=== PATIENT | female | born 1965 | race Caucasian/White ===

== ENCOUNTER 2019-01-16 13:37 | Outpatient (CLI) ==
--- NOTE | 2019-01-16 14:07 | DI ---
Exam: Left hand three view HISTORY: Pain FINDINGS: Three views of the left hand demonstrate no evidence of acute fracture or dislocation. Mi ld joint space narrowing and osteophytosis is noted at the second distal interphalangeal joint. Ther e is no osseous erosion or radiodense foreign body. There is no significant soft tissue swelling vis ualized. IMPRESSION: No acute fracture or dislocation involving the left hand. Mild degenerative disease of the second distal interphalangeal joint.
--- NOTE | 2019-01-16 14:07 | DI ---
EXAM: Three views of the right hand. History: Right hand pain. Findings: No acute fracture or dislocation. Mild polyarticular joint space narrowing with small ost eophytes of the DIP joints. No erosive osseous changes. No abnormal calcifications or radiopaque fo reign bodies. Impression: 1. No acute osseous abnormality. 2. Mild polyarticular arthritis
== END 2019-01-16 13:38 | disposition home or self-care (01) ==
LOC: RAD 13:37
PROVIDERS: ATTEND Family Medicine
DX: M25.541 Pain in joints of right hand (principal); M25.542 Pain in joints of left hand

== ENCOUNTER 2022-08-17 02:06 | Inpatient (IN) ==
[2022-08-17] MEDS ORDERED: DUONEB NEB STA ×2 (02:18→03:18)
[2022-08-17] MEDS ORDERED: SOLU-MEDROL 125 MG IVP STA (02:19)
--- NOTE | 2022-08-17 02:29 | ED.PDOC ---
General ED Provider: Dr. NATALY FUENTES Chief Complaint: Shortness of Air Stated Complaint: comes to the ER with complaints of increased shortness of breath starting tonight. She was seen by her PCP who placed her on azithromycin and steroids 4 days ago but symptoms got worse tonight. Has been exposed to the FLU @ work Time Seen by Provider: 08/17/22 02:18 Mode of Arrival: Walk-In Information Source: Patient Primary Care Provider: JOSE JENNINGS Nursing and Triage Documentation Reviewed and Agree: Yes Does patient meet sepsis criteria?: No System Inflammatory Response Syndrome: Not Applicable Sepsis Protocol: For patient's 13 years and over: Temp is 96.8 and below OR 101 and greater Pulse >90 BPM Resp >20/minute Acutely Altered Mental Status Are patient's symptoms suggestive of a new infection, such as: -Pneumonia -Skin, Soft Tissue -Endocarditis -UTI -Bone, Joint Infection -Implantable Device -Acute Abdominal Infection -Wound Infection -Meningitis -Blood Stream Catheter Infection -Unknown Respiratory Complaint Exam Shortness of Air Complaint/Exam Onset/Duration: 4 days Symptoms Are: Still present Timing: Constant Initial Severity: Moderate Current Severity: Severe Character: Reports Dyspnea at rest Aggravating: Reports URI and Weather Associated Signs and Symptoms: Reports Cough and Wheezing Pulmonary Embolism Risk Factors: Reports None Cardiac Risk Factors: Reports None Pseudomonas Risk Factors: Reports None Tuberculosis Risk Factors: Reports Corticosteriod use Home Oxygen Use: No Recent Stress Test: No Recent Echo/LV Function: No Respiratory Distress: None Retractions: Supraclavicular Diminished Breath Sounds: Yes Prolonged Expiratory Phase: No Unable to Speak Full Sentences: No Fatigue: No Leg Swelling: No Anahi's Sign Present: No Grunting Respirations: No Kussmaul Respirations: No Differential Diagnoses: COPD Exacerbation, Pneumonia and URI Quality Indicator For Non-Traumatic Chest Pain/Syncope: EKG Performed Review of Systems Review Of Systems Constitutional: Reports No symptoms Eyes: Reports No symptoms Ears, Nose, Mouth, Throat: Reports No symptoms Respiratory: Reports Cough (green sputum ), Short of air and Wheezing Cardiac: Reports No symptoms GI: Reports No symptoms : Reports No symptoms Musculoskeletal: Reports No symptoms Skin: Reports No symptoms Neurological: Reports Anxiety Hematologic/Lymphatic: Reports No symptoms All Other Systems: Reviewed and Negative [facility] Medical History (Updated 08/17/22 @ 02:45 by NATALY FUENTES MD) Arthritis History of kidney stones Thyroid disease Family History (Updated 08/17/22 @ 02:25 by NATALY FUENTES MD) Other No pertinent family history Social History (Updated 08/17/22 @ 02:27 by NATALY FUENTES MD) Smoking and tobacco status: Current some day smoker Tobacco type: cigarettes Smoking packs per day: 1 Alcohol intake: never Substance use type: does not use Surgical History (Updated 08/17/22 @ 02:27 by NATALY FUENTES MD) H/O tubal ligation Female Reproductive History Menstrual Hx Hysterectomy: No Hx Tubal Ligation: Yes Physical Exam Physical Exam Appearance: Reports Ill-appearing Ill-appearing: Moderate Pain Distress: None Eyes: Reports Conjunctiva clear ENT: Reports Nose normal and Oropharynx normal Neck: Not Examined Respiratory: Reports Breath sounds diminished and Wheezes Cardiovascular: Reports RRR, Pulses normal and Tachycardia GI/: Reports Not Examined Musculoskeletal: Reports Normal strength, ROM intact and No edema Skin: Reports Warm, Dry, Normal color and Pale Neurological: Reports Motor intact, Alert and Oriented Psychiatric: Reports Anxious Interpretation Radiology Interpretation Radiology Interpretation By: ED Physician Radiology Results: No acute changes (But poor inflation ? infltrate on the right) Exam Interpreted: Portable CXR Reconciler Rate: Tachy Rhythm: Sinus EKG Interpretation Time of EKG #1: 02:26 Rate: Tachy Rhythm: Sinus Ectopy: None [place]: Right ST Segment: Normal Interpretation: old septal infarct age undetermined Re-Evaluation Re-Evaluation Status: Improved Vital Signs Stable: Yes (sat 99 %) Appearance: NAD Lungs: Clear Neuro: Alert and Oriented X3 Physician Notification Case Discussed Physician Notified: Dr Jennings Time of Notification: 03:15 (admit to hospitalist) Critical Care Note Critical Care Note Total Critical Care Time (mins): 0 Course Course Hematology/Chemistry: 08/17/22 02:30 08/17/22 02:30 Orders, Labs, Meds: Lab Review 08/17/22 08/17/22 08/17/22 02:05 02:05 02:10 WBC RBC Hgb Hct MCV MCH MCHC RDW Coeff of Tiara Plt Count Immature Gran % (Auto) Neut % (Auto) Lymph % (Auto) [place] % (Auto) Eos % (Auto) Baso % (Auto) Neut # (Auto) Lymph # (Auto) [place] # (Auto) Eos # (Auto) Baso # (Auto) Immature Gran # (Auto) Puncture Site [place] Excess 2.2 O2 Saturation 84.6 L ABG pH 7.39 ABG pCO2 45.0 ABG pO2 50.0 L* ABG HCO3 27.2 ABG Total CO2 28.6 H Cristobal Test + Hemoglobin 1.2 Oxyhemoglobin 83.3 L Carboxyhemoglobin 4.9 H Total Hemoglobin 14.3 Sodium Potassium Chloride Carbon Dioxide Anion Gap BUN Creatinine Estimated GFR (MDRD) BUN/Creatinine Ratio Glucose Lactic Acid Calcium Total Bilirubin AST ALT Alkaline Phosphatase Total Creatine Kinase CK-MB (CK-2) CK-MB (CK-2) % Troponin I Total Protein Albumin Globulin Albumin/Globulin Ratio Procalcitonin Influ A Molecular Assay Positive by naat H Influ B Molecular Assay Negative by naat SARS CoV-2 RNA Rapid EMANUEL Negative 08/17/22 08/17/22 08/17/22 02:30 02:30 02:30 WBC 6.97 RBC 4.45 Hgb 13.8 Hct 44.2 MCV 99.3 H MCH 31.0 MCHC 31.2 L RDW Coeff of Tiara 13.9 Plt Count 258 Immature Gran % (Auto) 0.4 Neut % (Auto) 78.5 H Lymph % (Auto) 11.6 [place] % (Auto) 8.8 Eos % (Auto) 0.1 Baso % (Auto) 0.6 Neut # (Auto) 5.5 Lymph # (Auto) 0.8 [place] # (Auto) 0.6 Eos # (Auto) 0.0 Baso # (Auto) 0.0 Immature Gran # (Auto) 0.0 Puncture Site Base Excess O2 Saturation ABG pH ABG pCO2 ABG pO2 ABG HCO3 ABG Total CO2 Cristobal Test Hemoglobin Oxyhemoglobin Carboxyhemoglobin Total Hemoglobin Sodium 138.8 Potassium 3.79 Chloride 102.4 Carbon Dioxide 31.0 H Anion Gap 9.19 BUN 23.0 H Creatinine 0.91 Estimated GFR (MDRD) 64.00 BUN/Creatinine Ratio 25.27 Glucose 106.9 H Lactic Acid 1.04 Calcium 9.00 Total Bilirubin 0.37 AST 44.7 H ALT 22.6 Alkaline Phosphatase 104.3 Total Creatine Kinase 483.1 H CK-MB (CK-2) 4.180 H CK-MB (CK-2) % 0.8600 Troponin I < 0.012 Total Protein 7.76 Albumin 4.64 Globulin 3.12 Albumin/Globulin Ratio 1.48 Procalcitonin Influ A Molecular Assay Influ B Molecular Assay SARS CoV-2 RNA Rapid EMANUEL 08/17/22 02:30 WBC RBC Hgb Hct MCV MCH MCHC RDW Coeff of Tiara Plt Count Immature Gran % (Auto) Neut % (Auto) Lymph % (Auto) [place] % (Auto) Eos % (Auto) Baso % (Auto) Neut # (Auto) Lymph # (Auto) [place] # (Auto) Eos # (Auto) Baso # (Auto) Immature Gran # (Auto) Puncture Site Base Excess O2 Saturation ABG pH ABG pCO2 ABG pO2 ABG HCO3 ABG Total CO2 Cristobal Test Hemoglobin Oxyhemoglobin Carboxyhemoglobin Total Hemoglobin Sodium Potassium Chloride Carbon Dioxide Anion Gap BUN Creatinine Estimated GFR (MDRD) BUN/Creatinine Ratio Glucose Lactic Acid Calcium Total Bilirubin AST ALT Alkaline Phosphatase Total Creatine Kinase CK-MB (CK-2) CK-MB (CK-2) % Troponin I Total Protein Albumin Globulin Albumin/Globulin Ratio Procalcitonin < 0.05 Influ A Molecular Assay Influ B Molecular Assay SARS CoV-2 RNA Rapid EMANUEL Orders Category Date Time Status ADMIT PATIENT INPATIENT .TO [facility] (MONITORED BED) ADMISSION 08/17/22 03:18 Active ABG DRAW REQUEST Stat CARDIO 08/17/22 02:18 Completed EKG-(ED ONLY) Stat CARDIO 08/17/22 02:18 Completed NEBULIZER TREATMENT Stat CARDIO 08/17/22 02:19 Completed NEBULIZER TREATMENT Stat CARDIO 08/17/22 03:20 Ordered OXYGEN Routine CARDIO 08/17/22 03:18 Ordered ACTIVITY .Up ad Merari CARE 08/17/22 03:19 Active INTAKE & OUTPUT Q8HR CARE 08/17/22 03:19 Active TELEMETRY MONITORING TELE CARE 08/17/22 03:18 Active VITAL SIGNS Q4HR CARE 08/17/22 03:19 Active REGULAR DIET DIETARY 08/17/22 Breakfast Ordered ED APPLY O2 .ONCE EMERGENCY 08/17/22 02:18 Active ED BOAT OFFICER APPLIED .ONCE EMERGENCY 08/17/22 02:18 Active ED IV/MEDIPORT/POWERPORT .ONCE EMERGENCY 08/17/22 02:18 Active ABG COOX Stat LAB 08/17/22 02:10 Completed BASIC METABOLIC PANEL DAILY@0600 LAB 08/18/22 06:00 Ordered BLOOD CULTURE (ED ONLY) Stat LAB 08/17/22 02:30 Received CBC W/ AUTO DIFF DAILY@0600 LAB 08/18/22 06:00 Ordered CBC W/ AUTO DIFF Stat LAB 08/17/22 02:30 Completed COMPREHENSIVE METABOLIC PANEL Stat LAB 08/17/22 02:30 Completed CREATINE KINASE Stat LAB 08/17/22 02:30 Completed FLU A & B MOLECULAR [FLU A/B MOLECULAR] Stat LAB 08/17/22 02:05 Completed LACTIC ACID Stat LAB 08/17/22 02:30 Completed PROCALCITONIN Stat LAB 08/17/22 02:30 Completed SARS COV-2 RNA RAPID EMANUEL Stat LAB 08/17/22 02:05 Completed TROPONIN I Stat LAB 08/17/22 02:30 Completed 0.9 % Sodium Chloride [Saline Flush] MEDS 08/17/22 02:18 Ordered 1 syr IVF PRN PRN Acetaminophen [Tylenol] MEDS 08/17/22 03:18 Ordered 650 mg PO Q4H PRN Ceftriaxone/D5w 1 gm Premix [Rocephin 1 gm/50 ml D5w] MEDS 08/18/22 09:00 Ordered 1 gm in 50 ml IV DAILY Ceftriaxone/D5w 1 gm Premix [Rocephin 1 gm/50 ml D5w] MEDS 08/17/22 03:17 Active 1 gm in 50 ml IV ONCE Enoxaparin Sodium [Lovenox] MEDS 08/17/22 09:00 Ordered 40 mg SUBCUT DAILY Hydrocodone Bit/Acetaminophen [[place] 5-325] MEDS 08/17/22 03:18 Ordered 1 tab PO Q6H PRN Hydromorphone HCl [Dilaudid 1 mg/ml Syringe] MEDS 08/17/22 03:18 Ordered 1 mg IVP Q6H PRN Ipratropium/Albuterol Neb [Duoneb] MEDS 08/17/22 02:18 Discontinued 3 ml NEB ONCE STA Ipratropium/Albuterol Neb [Duoneb] MEDS 08/17/22 03:18 Discontinued 3 ml NEB ONCE STA Methylprednisolone Sod Succ/Pf [Solu-Medrol 125 mg] MEDS 08/17/22 02:19 Discontinued 125 mg IVP ONCE STA Methylprednisolone Sod Succ/Pf [Solu-Medrol 125 mg] MEDS 08/17/22 06:00 Order ed 125 mg IVP Q6HR Ondansetron HCl/Pf [Zofran 4 mg/2 ml] MEDS 08/17/22 03:18 Ordered 4 mg IVP Q6H PRN Oseltamivir Phosphate Capsule [Tamiflu Capsule] MEDS 08/17/22 03:17 Discontinued 75 mg PO ONCE ONE Oseltamivir Phosphate Capsule [Tamiflu Capsule] MEDS 08/17/22 17:00 Ordered 75 mg PO Q12HR Sodium Chloride 0.9% [Sodium Chloride] 1,000 ml MEDS 08/17/22 03:30 Ordered IV 75 mls/hr RESUSCITATION STATUS Routine OTHERS 08/17/22 03:18 Ordered CHEST, 1V AP ONLY Stat RADS 08/17/22 02:18 Completed Medications Generic Name Dose Route Start Last Admin Trade Name Freq PRN Reason Stop Dose Admin Acetaminophen 650 mg 08/17/22 03:18 Acetaminophen 325 Mg Tablet PO Q4H PRN Fever and Mild Pain Hydrocodone Bitart/Acetaminophen 1 tab 08/17/22 03:18 Hydrocodone Bit/Acetaminophen 5/325 Mg Tablet PO Q6H PRN MODERATE PAIN Enoxaparin Sodium 40 mg 08/17/22 09:00 Enoxaparin Sodium 40 Mg/0.4 Ml Syr SUBCUT DAILY KILEY Hydromorphone HCl 1 mg 08/17/22 03:18 Hydromorphone Hcl 1 Mg/Ml Syringe IVP Q6H PRN Severe Pain CEFTRIAXONE/D5W 1 GM PREMIX 1 gm in 50 mls @ 75 mls/hr 08/17/22 03:17 08/17/22 03:25 Rocephin 1 Gm/50 Ml D5w IV 08/17/22 03:56 75 mls/hr ONCE STA Administration Sodium Chloride 1,000 mls @ 75 mls/hr 08/17/22 03:30 Sodium Chloride IV .[id number] KILEY CEFTRIAXONE/D5W 1 GM PREMIX 1 gm in 50 mls @ 75 mls/hr 08/18/22 09:00 Rocephin 1 Gm/50 Ml D5w IV 08/21/22 08:59 DAILY KILEY Methylprednisolone Sodium Succinate 125 mg 08/17/22 06:00 Methylprednisolone Sod Succ/Pf 125 Mg/2 Ml Vial IVP Q6HR KILEY Non-Formulary Medication 175 mcg 08/17/22 09:00 Levothyroxine [Synthroid] PO DAILY KILEY Ondansetron HCl 4 mg 08/17/22 03:18 Ondansetron Hcl/Pf 4 Mg/2 Ml Sdv IVP Q6H PRN Nausea / Vomiting Oseltamivir Phosphate 75 mg 08/17/22 17:00 Oseltamivir Phosphate 75 Mg Capsule PO Q12HR KILEY Sodium Chloride 1 syr 08/17/22 02:18 0.9% Sodium Chloride 10 Ml Disp.Syrin IVF PRN PRN To flush IV Discontinued Medications Generic Name Dose Route Start Last Admin Trade Name Freq PRN Reason Stop Dose Admin Albuterol/Ipratropium 3 ml 08/17/22 02:18 08/17/22 02:10 Ipratropium/Albuterol Vial.[facility] 08/17/22 02:19 3 ml ONCE STA Administration Albuterol/Ipratropium 3 ml 08/17/22 03:18 Ipratropium/Albuterol Vial.[facility] 08/17/22 03:19 ONCE STA Methylprednisolone Sodium Succinate 125 mg 08/17/22 02:19 08/17/22 02:24 Methylprednisolone Sod Succ/Pf 125 Mg/2 Ml Vial IVP 08/17/22 02:20 125 mg ONCE STA Administration Oseltamivir Phosphate 75 mg 08/17/22 03:17 08/17/22 03:25 Oseltamivir Phosphate 75 Mg Capsule PO 08/17/22 03:18 75 mg ONCE ONE Administration Vital Signs: Temp Pulse Resp BP Pulse Ox 08/17/22 02:08 101 F H 109 H 24 H 127/89 87 L Discharge Plan Discharge Patient Disposition: ADMITTED INPATIENT Discharge Problem: Influenza A, Acute respiratory failure with hypoxemia Did you review [place] [employer]IND TUNNEL TECHNICIAN?: Not Applicable ED Provider: NATALY FUENTES Condition: Fair Physician Progress Note: []
[2022-08-17 02:37] LABS: BASOPHILS % (AUTO) 0.6 % (0.0-3.0); EOSINOPHILS % (AUTO) 0.1 % (0.0-7.0); HEMATOCRIT 44.2 % (37.0-47.0); HEMOGLOBIN 13.8 g/dl (12.0-16.0); IMMATURE GRANULOCYTE % (AUTO) 0.4 % (0.0-5.0); LYMPHOCYTES # (AUTO) 0.8 K/uL (0.60-3.4); LYMPHOCYTES % (AUTO) 11.6 (10.0-50.0); MEAN CORPUSCULAR HGB CONC 31.2 (31.8-35.4); MEAN CORPUSCULAR VOLUME 99.3 fl (81.0-99.0); MONOCYTES # (AUTO) 0.6 K/uL (0.4-2.0); MONOCYTES % (AUTO) 8.8 (0-10); NEUTROPHILS # (AUTO) 5.5 K/ul (2.0-6.9); NEUTROPHILS % (AUTO) 78.5 % (42.2-75.2); PLATELET COUNT 258 10^3/uL (140-440); RDW COEFFICIENT OF VARIATION 13.9 % (11.6-14.8); RED BLOOD COUNT 4.45 10^6/ul (4.20-5.40); WHITE BLOOD COUNT 6.97 K/ul (4.6-10.2)
[2022-08-17 02:38] LABS: MOLECULAR FLU A POSITIVE BY NAAT (NEGATIVE); MOLECULAR FLU B NEGATIVE BY NAAT (NEGATIVE)
[2022-08-17 02:43] LABS: ABG PH 7.39 (7.35-7.45); BEecf 2.2 (-2.0-3.0); HCO3 27.2 (21-28)
[2022-08-17 02:44] LABS: ABG O2 HGB 83.3 % (95-100); COHb 4.9 (0.5-1.5); MetHb 1.2 (0-1.5); TCO2 28.6 (19-24); sO2 84.6 % (94-98); tHb 14.3 g/dl (11.7-17.4)
[2022-08-17 02:50] LABS: ALANINE AMINOTRANSFERASE 22.6 U/L (0-35); ALBUMIN 4.64 g/dL (3.5-5.0); ALKALINE PHOSPHATASE 104.3 U/L (38-126); ASPARTATE AMINO TRANSFERASE 44.7 U/L (14-36); BILIRUBIN,TOTAL 0.37 mg/dL (0.2-1.3); CHLORIDE 102.4 mmol/L (98-107); CREATINE KINASE 483.1 U/L (30-135); CREATININE 0.91 mg/dL (0.60-1.30); GLUCOSE 106.9 mg/dL (74-106); POTASSIUM 3.79 mmol/L (3.5-5.1); SODIUM 138.8 mmol/L (134.5-145); TOTAL PROTEIN 7.76 g/dL (6.3-8.2)
[2022-08-17 03:01] LABS: TROPONIN I < 0.012 ng/ml (0.0000-0.120)
[2022-08-17] MEDS ORDERED: TAMIFLU CAPSULE PO ONE (03:17)
[2022-08-17] MEDS ORDERED: ROCEPHIN 1 GM/50 ML D5W 1 GM/50 ML BAG IV STA (03:17)
[2022-08-17] MEDS ORDERED: ZOFRAN 4 MG/2 ML IVP PRN (03:18)
[2022-08-17] MEDS ORDERED: DILAUDID 1 MG/ML SYRINGE IVP PRN (03:18)
[2022-08-17] MEDS ORDERED: NORCO 5-325 PO PRN (03:18)
[2022-08-17] MEDS ORDERED: SODIUM CHLORIDE 1,000 ML IV SCH (03:30)
--- NOTE | 2022-08-17 03:34 | DI ---
EXAM: AP chest. HISTORY: Shortness of breath. FINDINGS: The lung apices are incompletely visualized secondary to positioning of the patient's head which limits the exam. The cardiac silhouette and pulmonary vasculature are within normal limits. T here are calcified granulomas. There are right lower lobe infiltrates, consistent with pneumonia. Impression: Right lower lobe infiltrates, consistent with pneumonia.
[2022-08-17 04:04] VITALS: BMI 23.4
[2022-08-17] MEDS: SYNTHROID PO SCH ×2 (05:29→05:30)
[2022-08-17] MEDS ORDERED: DUONEB NEB ONE ×2 (05:43→09:55)
[2022-08-17] MEDS ORDERED: SOLU-MEDROL 125 MG IVP SCH (06:00)
[2022-08-17] MEDS ORDERED: LEVOTHYROXINE 175 MCG PO SCH (09:00)
[2022-08-17] MEDS: LOVENOX SUBCUT SCH (09:35)
[2022-08-17] MEDS: DUONEB NEB PRN ×2 (09:58→20:10)
[2022-08-17] MEDS: SODIUM CHLORIDE 1,000 ML IV SCH ×3 (10:30→21:47)
[2022-08-17] MEDS: SOLU-MEDROL 40 MG IVP SCH ×3 (10:31→18:28)
--- NOTE | 2022-08-17 10:31 | PCM.PROG ---
Date Seen by Provider: 08/17/22 Time Seen by Provider: 10:29 Subjective: dx. influenza A, hypoxia, bronchitis Objective: Vitals: T=98.7 F, P=94, R=18, IF=182/81, SPO2=91 HEENT: [conjunctiva clear] Neck: []supple Lungs: [] no respiratory distress CVS: []rrr Abdomen: []nondistended Extremities: []nabil Neurological: []alert Skin: []pink Lab/Tests/Diagnostic Imaging: [] cpk [id number] Plan: increase iv ns to 125cc/hr, continue supplemental oxygen, duo neb q6prn, solumedrol [address] Singh at 19:00
[2022-08-17] MEDS: TYLENOL PO PRN (16:20)
[2022-08-17] MEDS: TAMIFLU CAPSULE PO SCH ×2 (16:20→20:55)
[2022-08-17] MEDS: ROCEPHIN 1 GM/50 ML D5W 1 GM/50 ML BAG IV SCH (20:55)
[2022-08-18] MEDS: SOLU-MEDROL 40 MG IVP SCH ×4 (00:42→21:08)
[2022-08-18] MEDS: DUONEB NEB PRN (04:30)
[2022-08-18] MEDS: TYLENOL PO PRN (04:43)
[2022-08-18 05:29] LABS: HEMATOCRIT 39.7 % (37.0-47.0); HEMOGLOBIN 12.4 g/dl (12.0-16.0); IMMATURE GRANULOCYTE % (AUTO) 0.4 % (0.0-5.0); LYMPHOCYTES % (AUTO) 14.6 (10.0-50.0); MEAN CORPUSCULAR HEMOGLOBIN 31.8 pg (27.0-31.0); MEAN CORPUSCULAR HGB CONC 31.2 (31.8-35.4); MEAN CORPUSCULAR VOLUME 101.8 fl (81.0-99.0); MONOCYTES # (AUTO) 0.5 K/uL (0.4-2.0); MONOCYTES % (AUTO) 7.7 (0-10); NEUTROPHILS # (AUTO) 5.3 K/ul (2.0-6.9); NEUTROPHILS % (AUTO) 77.3 % (42.2-75.2); PLATELET COUNT 224 10^3/uL (140-440); RDW COEFFICIENT OF VARIATION 14.1 % (11.6-14.8); WHITE BLOOD COUNT 6.91 K/ul (4.6-10.2)
[2022-08-18 05:42] LABS: BLOOD UREA NITROGEN 17.5 mg/dL (7-17); CALCIUM 8.55 mg/dL (8.4-10.2); CARBON DIOXIDE 31.6 mmol/L (22-30.0); CHLORIDE 110.2 mmol/L (98-107); CREATININE 0.63 mg/dL (0.60-1.30); GLUCOSE 135.6 mg/dL (74-106); SODIUM 143.1 mmol/L (134.5-145)
[2022-08-18 05:48] LABS: POTASSIUM 4.02 mmol/L (3.5-5.1)
[2022-08-18] MEDS: SYNTHROID PO SCH ×2 (05:55)
[2022-08-18] MEDS: SODIUM CHLORIDE 1,000 ML IV SCH ×2 (06:08→17:20)
--- NOTE | 2022-08-18 09:40 | PCM.PROG ---
Date Seen by Provider: 08/18/22 Time Seen by Provider: 09:40 Subjective: Still short of breath and weak. Objective: Vitals: T=97.6 F, P=84, R=18, LB=203/68, SPO2=96 Appears acutely ill. HEENT: [] Neck: [] No JVD. Lungs: [] Breath tones diminished throughout. CVS: [] RRR. Abdomen: [] Extremities: [] Neurological: [] Skin: [] Lab/Tests/Diagnostic Imaging: [] (1) Influenza A: Status: Acute Code(s): J10.1 - Influenza due to other identified influenza virus with other respiratory manifestations SNOMED Code(s): 293696196 (2) Acute respiratory failure with hypoxemia: Status: Acute Code(s): J96.01 - Acute respiratory failure with hypoxia SNOMED Code(s): 925863617 Assessment: Still requiring supplemental oxygen. Continue IV steroids and nebs. (3) Pneumonia and influenza: Status: Acute Code(s): J11.00 - Influenza due to unidentified influenza virus with unspecified type of pneumonia SNOMED Code(s): 831865307 Assessment: Continue IV antibiotics. Plan: Plans as above.
[2022-08-18] MEDS: TAMIFLU CAPSULE PO SCH ×2 (10:02→21:07)
[2022-08-18] MEDS: LOVENOX SUBCUT SCH (10:04)
[2022-08-18] MEDS: ZITHROMAX 500 MG in SODIUM CHLORIDE 250 ML IV SCH (10:08)
[2022-08-18] MEDS: DUONEB NEB SCH ×4 (10:15→21:11)
[2022-08-18] MEDS: ROCEPHIN 1 GM/50 ML D5W 1 GM/50 ML BAG IV SCH (21:07)
[2022-08-19] MEDS: DUONEB NEB SCH ×6 (01:18→21:20)
[2022-08-19] MEDS: SODIUM CHLORIDE 1,000 ML IV SCH ×4 (02:48→20:52)
[2022-08-19] MEDS: SYNTHROID PO SCH ×2 (05:39)
[2022-08-19] MEDS: SOLU-MEDROL 40 MG IVP SCH ×3 (05:39→20:54)
[2022-08-19] MEDS: ZITHROMAX 500 MG in SODIUM CHLORIDE 250 ML IV SCH (08:59)
[2022-08-19] MEDS: TAMIFLU CAPSULE PO SCH ×2 (09:02→20:42)
[2022-08-19] MEDS: LOVENOX SUBCUT SCH (09:03)
[2022-08-19] MEDS: MUCINEX PO SCH ×2 (10:18→20:41)
--- NOTE | 2022-08-19 17:48 | PCM.PROG ---
Date Seen by Provider: 08/19/22 Time Seen by Provider: 09:00 Subjective: CC - Cough and SOA, better. Admit 08/17 Objective: Vitals: T=97.3 F, P=77, R=18, DL=646/78, SPO2=95 HEENT: [WNL] Neck: [supple] Lungs: [Rhonchi, no wheeze] CVS: [RRR] Abdomen: soft[] Extremities: [intact] Neurological: intact[] Skin: [wnl] Lab/Tests/Diagnostic Imaging: [see chart] (1) Influenza A: Status: Acute Code(s): J10.1 - Influenza due to other identified influenza virus with other respiratory manifestations SNOMED Code(s): 231012991 Assessment: Flu - on tamiflu (2) Acute respiratory failure with hypoxemia: Status: Acute Code(s): J96.01 - Acute respiratory failure with hypoxia SNOMED Code(s): 507003833 Assessment: Long-standing COPD, still smokes some, retained CO2 somewhat when admitted, better and now off BiPap. (3) Pneumonia of right lower lobe due to influenza A virus: Status: Acute Code(s): J11.00 - Influenza due to unidentified influenza virus with unspecified type of pneumonia SNOMED Code(s): 016970392 Assessment: Pneumonia RLL, viral vs bacterial. On abx. Slowly better. Plan: Continue same tx.
[2022-08-19] MEDS: ROCEPHIN 1 GM/50 ML D5W 1 GM/50 ML BAG IV SCH (20:53)
[2022-08-20] MEDS: DUONEB NEB SCH ×4 (01:05→13:35)
[2022-08-20] MEDS: SOLU-MEDROL 40 MG IVP SCH ×2 (04:51→12:04)
[2022-08-20 06:07] VITALS: TEMP 97.7
[2022-08-20] MEDS: SYNTHROID PO SCH ×2 (06:16)
[2022-08-20] MEDS: LOVENOX SUBCUT SCH (08:57)
[2022-08-20] MEDS: MUCINEX PO SCH (08:57)
[2022-08-20] MEDS: TAMIFLU CAPSULE PO SCH (08:57)
[2022-08-20] MEDS: ZITHROMAX 500 MG in SODIUM CHLORIDE 250 ML IV SCH (08:58)
[2022-08-20 10:09] VITALS: BP 115/73
--- NOTE | 2022-08-20 13:11 | PCM.DC ---
Final Diagnosis: Dx - Influenza, pneumonia, hypoxemia. Date of admit - 08/17/22 Date of discharge - 08/20/22 Physical Exam Appearance: Well-appearing Ill-appearing: None Pain Distress: None Eyes: JESSIE Neck: Supple Respiratory: Airway patent and Rhonchi Cardiovascular: RRR and Pulses normal GI/: Soft and Nontender Musculoskeletal: Normal strength and ROM intact Skin: Warm and Dry Neurological: Sensation intact and Motor intact Psychiatric: Affect appropriate and Mood appropriate (1) Influenza A: Status: Acute Code(s): J10.1 - Influenza due to other identified influenza virus with other respiratory manifestations SNOMED Code(s): 008725804 (2) Acute respiratory failure with hypoxemia: Status: Acute Code(s): J96.01 - Acute respiratory failure with hypoxia SNOMED Code(s): 612019142 (3) Pneumonia of right lower lobe due to influenza A virus: Status: Acute Code(s): J11.00 - Influenza due to unidentified influenza virus with unspecified type of pneumonia SNOMED Code(s): 046810976 Reason for Hospitalization: Dx with flu and mild pneumonia, along with hypoxemia. Treated with tamiflu, abxx, neb machine, oxygen. Prognosis/Condition at Discharge: Good, stable. Medications at Discharge: Laboratory Tests 08/17/22 08/17/22 08/17/22 02:05 02:05 02:10 WBC RBC Hgb Hct MCV MCH MCHC RDW Coeff of Tiara Plt Count Immature Gran % (Auto) Neut % (Auto) Lymph % (Auto) Yates % (Auto) Eos % (Auto) Baso % (Auto) Neut # (Auto) Lymph # (Auto) [place]ates # (Auto) Eos # (Auto) Baso # (Auto) Immature Gran # (Auto) Puncture Site [place] Excess 2.2 O2 Saturation 84.6 L ABG pH 7.39 ABG pCO2 45.0 ABG pO2 50.0 L* ABG HCO3 27.2 ABG Total CO2 28.6 H Cristobal Test + Hemoglobin 1.2 Oxyhemoglobin 83.3 L Carboxyhemoglobin 4.9 H Total Hemoglobin 14.3 Sodium Potassium Chloride Carbon Dioxide Anion Gap BUN Creatinine Estimated GFR (MDRD) BUN/Creatinine Ratio Glucose Lactic Acid Calcium Total Bilirubin AST ALT Alkaline Phosphatase Total Creatine Kinase CK-MB (CK-2) CK-MB (CK-2) % Troponin I Total Protein Albumin Globulin Albumin/Globulin Ratio Procalcitonin Influ A Molecular Assay Positive by naat H Influ B Molecular Assay Negative by naat SARS CoV-2 RNA Rapid EMANUEL Negative Blood Type 08/17/22 08/17/22 08/17/22 02:30 02:30 02:30 WBC 6.97 RBC 4.45 Hgb 13.8 Hct 44.2 MCV 99.3 H MCH 31.0 MCHC 31.2 L RDW Coeff of Tiara 13.9 Plt Count 258 Immature Gran % (Auto) 0.4 Neut % (Auto) 78.5 H Lymph % (Auto) 11.6 Yates % (Auto) 8.8 Eos % (Auto) 0.1 Baso % (Auto) 0.6 Neut # (Auto) 5.5 Lymph # (Auto) 0.8 Yates # (Auto) 0.6 Eos # (Auto) 0.0 Baso # (Auto) 0.0 Immature Gran # (Auto) 0.0 Puncture Site Base Excess O2 Saturation ABG pH ABG pCO2 ABG pO2 ABG HCO3 ABG Total CO2 Cristobal Test Hemoglobin Oxyhemoglobin Carboxyhemoglobin Total Hemoglobin Sodium 138.8 Potassium 3.79 Chloride 102.4 Carbon Dioxide 31.0 H Anion Gap 9.19 BUN 23.0 H Creatinine 0.91 Estimated GFR (MDRD) 64.00 BUN/Creatinine Ratio 25.27 Glucose 106.9 H Lactic Acid 1.04 Calcium 9.00 Total Bilirubin 0.37 AST 44.7 H ALT 22.6 Alkaline Phosphatase 104.3 Total Creatine Kinase 483.1 H CK-MB (CK-2) 4.180 H CK-MB (CK-2) % 0.8600 Troponin I < 0.012 Total Protein 7.76 Albumin 4.64 Globulin 3.12 Albumin/Globulin Ratio 1.48 Procalcitonin Influ A Molecular Assay Influ B Molecular Assay SARS CoV-2 RNA Rapid EMANUEL Blood Type 08/17/22 08/17/22 08/18/22 02:30 02:30 05:07 WBC 6.91 RBC 3.90 L Hgb 12.4 Hct 39.7 MCV 101.8 H MCH 31.8 H MCHC 31.2 L RDW Coeff of Tiara 14.1 Plt Count 224 Immature Gran % (Auto) 0.4 Neut % (Auto) 77.3 H Lymph % (Auto) 14.6 Yates % (Auto) 7.7 Eos % (Auto) 0.0 Baso % (Auto) 0.0 Neut # (Auto) 5.3 Lymph # (Auto) 1.0 Yates # (Auto) 0.5 Eos # (Auto) 0.0 Baso # (Auto) 0.0 Immature Gran # (Auto) 0.0 Puncture Site Base Excess O2 Saturation ABG pH ABG pCO2 ABG pO2 ABG HCO3 ABG Total CO2 Cristobal Test Hemoglobin Oxyhemoglobin Carboxyhemoglobin Total Hemoglobin Sodium Potassium Chloride Carbon Dioxide Anion Gap BUN Creatinine Estimated GFR (MDRD) BUN/Creatinine Ratio Glucose Lactic Acid Calcium Total Bilirubin AST ALT Alkaline Phosphatase Total Creatine Kinase CK-MB (CK-2) CK-MB (CK-2) % Troponin I Total Protein Albumin Globulin Albumin/Globulin Ratio Procalcitonin < 0.05 Influ A Molecular Assay Influ B Molecular Assay SARS CoV-2 RNA Rapid EMANUEL Blood Type O POSITIVE 08/18/22 05:07 WBC RBC Hgb Hct MCV MCH MCHC RDW Coeff of Tiara Plt Count Immature Gran % (Auto) Neut % (Auto) Lymph % (Auto) [place]ates % (Auto) Eos % (Auto) Baso % (Auto) Neut # (Auto) Lymph # (Auto) Yates # (Auto) Eos # (Auto) Baso # (Auto) Immature Gran # (Auto) Puncture Site Base Excess O2 Saturation ABG pH ABG pCO2 ABG pO2 ABG HCO3 ABG Total CO2 Cristobal Test Hemoglobin Oxyhemoglobin Carboxyhemoglobin Total Hemoglobin Sodium 143.1 Potassium 4.02 Chloride 110.2 H Carbon Dioxide 31.6 H Anion Gap 5.32 BUN 17.5 H Creatinine 0.63 Estimated GFR (MDRD) 97.00 BUN/Creatinine Ratio 27.77 Glucose 135.6 H Lactic Acid Calcium 8.55 Total Bilirubin AST ALT Alkaline Phosphatase Total Creatine Kinase CK-MB (CK-2) CK-MB (CK-2) % Troponin I Total Protein Albumin Globulin Albumin/Globulin Ratio Procalcitonin Influ A Molecular Assay Influ B Molecular Assay SARS CoV-2 RNA Rapid EMANUEL Blood Type EXAM: AP chest. HISTORY: Shortness of breath. FINDINGS: The lung apices are incompletely visualized secondary to positioning of the patient's head which limits the exam. The cardiac silhouette and pulmonary vasculature are within normal limits. There are calcified granulomas. There are right lower lobe infiltrates, consistent with pneumonia. Impression: Right lower lobe infiltrates, consistent with pneumonia. Lab/Diagnostics: Medications at Discharge (Home Meds & RX) hydrocodone 7.5 mg-acetaminophen 325 mg tablet 1 tab PO PRN PRN Pain 08/17/22 levothyroxine 175 mcg tablet (Synthroid) 175 mcg PO DAILY 08/17/22 methylprednisolone 4 mg tablets in a dose pack 4 mg PO DAILY 08/17/22 albuterol sulfate 90 mcg/actuation aerosol inhaler 2 inh inhalation Q4-6H PRN shortness of breath or wheezing #8.5 grams 08/20/22 cefuroxime axetil 250 mg tablet 250 mg PO BID Pneumonia 10 days #20 tabs 08/20/22 ipratropium 0.5 mg-albuterol 3 mg (2.5 mg base)/3 mL nebulization soln 3 ml inhalation Q4-6H PRN shortness of breath or wheezing #90 mL 08/20/22 oseltamivir 75 mg capsule (Tamiflu) 75 mg PO BID finish flu tx 3 days #6 caps 08/20/22 Education Provided to Patient and Family: Per nursing staff. Follow-ups: PCP as directed. Discharge Disposition: Home Hospital Course: Admitted with flu and pneumonia (RLL), viral vs bacterial, hypoxemia, mild. Treatment with tamiflu, abx, neb, oxygen. Patient improved, but still would drop sat into upper 80's when ambulating on RA. Arrangements will be made for home oxygen at 2 L per NC, this keeps oxygen sat 94% or slightly above. She probably has underlying COPD as well due to a long smoking hx. Plan: D/C home. See med list. In addition, oxygen will be supplied at 2 L per NC. F/U with PCP. Stop smoking. This discharge done with a [id number] exam and documentation entailing 45 minutes.
== END 2022-08-20 13:50 | disposition home or self-care (01) | DRG 193 ==
LOC: ED 02:06 → MEDSURG A 03:22
PROVIDERS: ADMIT Internal Medicine Geriatric Medicine; ATTEND Emergency Medicine
DX: Z20.828 Contact with and (suspected) exposure to other viral communicable diseases; J40 Bronchitis, not specified as acute or chronic; Z20.822 Contact with and (suspected) exposure to COVID-19; R53.1 Weakness; F17.210 Nicotine dependence, cigarettes, uncomplicated; R00.0 Tachycardia, unspecified; J10.1 Influenza due to other identified influenza virus with other respiratory manifestations; J96.01 Acute respiratory failure with hypoxia

== ENCOUNTER 2023-02-25 05:55 | Observation (INO) ==
[2023-02-25] MEDS ORDERED: ZITHROMAX 500 MG in SODIUM CHLORIDE 250 ML IV STA (06:14)
[2023-02-25] MEDS ORDERED: ALBUTEROL 0.083% NEB NEB STA (06:14)
[2023-02-25] MEDS ORDERED: DUONEB NEB STA (06:14)
[2023-02-25] MEDS ORDERED: SOLU-MEDROL 125 MG IVP ONE (06:14)
--- NOTE | 2023-02-25 06:23 | ED.PDOC ---
General ED Provider: Dr. МАРИНА CRUZ MD Chief Complaint: Shortness of Air Stated Complaint: Shortness of breath Time Seen by Provider: 02/25/23 06:10 Mode of Arrival: Walk-In Information Source: Patient and EMT Primary Care Provider: JOSE JENNINGS Nursing and Triage Documentation Reviewed and Agree: Yes Does patient meet sepsis criteria?: No System Inflammatory Response Syndrome: Not Applicable Sepsis Protocol: For patient's 13 years and over: Temp is 96.8 and below OR 101 and greater Pulse >90 BPM Resp >20/minute Acutely Altered Mental Status Are patient's symptoms suggestive of a new infection, such as: -Pneumonia -Skin, Soft Tissue -Endocarditis -UTI -Bone, Joint Infection -Implantable Device -Acute Abdominal Infection -Wound Infection -Meningitis -Blood Stream Catheter Infection -Unknown Respiratory Complaint Exam Shortness of Air Complaint/Exam Onset/Duration: 2 days Symptoms Are: Still present Timing: Constant Initial Severity: Moderate Current Severity: Moderate Character: Reports Dyspnea on exertion Aggravating: Reports None Alleviating: Reports Bronchodilators and Oxygen Associated Signs and Symptoms: Reports Rapid breathing and Labored breathing Related History: Reports Similar episode Cardiac Risk Factors: Reports Smoking Home Oxygen Use: Yes Review of Systems Review Of Systems Constitutional: Reports Weakness Respiratory: Reports Short of air and Wheezing All Other Systems: Reviewed and Negative [facility] Medical History (Updated 02/25/23 @ 12:04 by KARI JEAN-BAPTISTE PA-C) Arthritis M19.90 - Unspecified osteoarthritis, unspecified site (ICD-10) 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) History of kidney stones Z87.442 - Personal history of urinary calculi (ICD-10) Thyroid disease E07.9 - Disorder of thyroid, unspecified (ICD-10) Family History Mother Cervical cancer PATERNAL GRANDMOTHER Cardiovascular disease Other No pertinent family history Social History Smoking and tobacco status: Current every day smoker Tobacco type: cigarettes Smoking packs per day: 1 Alcohol intake: never Substance use type: does not use Surgical History H/O tubal ligation Z98.51 - Tubal ligation status (ICD-10) Female Reproductive History Menstrual Hx Hysterectomy: No Hx Tubal Ligation: Yes Physical Exam Physical Exam Appearance: Reports Ill-appearing Ill-appearing: None Pain Distress: None Eyes: Reports JESSIE and EOMI ENT: Reports Ears normal, Nose normal and Oropharynx normal Neck: Supple Respiratory: Reports Breath sounds diminished and Wheezes Cardiovascular: Reports RRR, Pulses normal and No rub GI/: Reports Soft, Nontender and No masses Musculoskeletal: Reports Normal strength, ROM intact and No edema Skin: Reports Warm and Normal color Neurological: Reports Sensation intact and Motor intact Psychiatric: Reports Affect appropriate Interpretation EKG Interpretation Time of EKG #1: 06:24 Rate: Normal Rhythm: Sinus Ectopy: None [place]: NL ST Segment: Normal Interpretation: possible old septal infarct. No acute ischemia Critical Care Note Critical Care Note Total Critical Care Time (mins): 0 Course Course 02/26/23 05:04 02/26/23 05:04 Orders, Labs, Meds: Lab Review 02/25/23 02/25/23 06:25 06:30 WBC 9.57 RBC 4.63 Hgb 13.6 Hct 44.0 MCV 95.0 MCH 29.4 MCHC 30.9 L RDW Coeff of [place] 12.7 Plt Count 316 Immature Gran % (Auto) 0.2 Neut % (Auto) 70.9 Lymph % (Auto) 18.4 [place] % (Auto) 8.0 Eos % (Auto) 2.1 Baso % (Auto) 0.4 Neut # (Auto) 6.8 Lymph # (Auto) 1.8 [place] # (Auto) 0.8 Eos # (Auto) 0.2 Baso # (Auto) 0.0 Immature Gran # (Auto) 0.0 Sodium 141.3 Potassium 4.49 Chloride 109.6 H Carbon Dioxide 29.7 Anion Gap 6.49 BUN 17.8 H Creatinine 0.69 Estimated GFR (MDRD) 87.00 BUN/Creatinine Ratio 25.79 Glucose 104.9 Calcium 8.88 Total Bilirubin 0.33 AST 21.1 ALT 14.0 Alkaline Phosphatase 95.8 Total Protein 7.00 Albumin 4.14 Globulin 2.86 Albumin/Globulin Ratio 1.44 Influ A Molecular Assay Negative by naat Influ B Molecular Assay Negative by naat SARS CoV-2 RNA Rapid EMANUEL Negative Orders Category Date Time Status ADMIT OBSERVATION [PLACE PATIENT OBSERVATION] .TO ADMISSION 02/25/23 06:57 Active MEDSURG (MONITORED BED) EKG-(ED ONLY) Stat CARDIO 02/25/23 06:14 Completed NEBULIZER TREATMENT Stat CARDIO 02/25/23 06:15 Completed TELEMETRY MONITORING TELE CARE 02/25/23 06:57 Active IV [ED IV/MEDIPORT/POWERPORT] .ONCE EMERGENCY 02/25/23 06:17 Active Monitor [ED SENIOR INTEGRATION DEVELOPER APPLIED] .ONCE EMERGENCY 02/25/23 06:17 Active OXYGEN [ED APPLY O2] .ONCE EMERGENCY 02/25/23 06:17 Active CBC W/ AUTO DIFF Stat LAB 02/25/23 06:30 Completed CMP [COMPREHENSIVE METABOLIC PANEL] Stat LAB 02/25/23 06:30 Completed COVID [SARS COV-2 RNA RAPID EMANUEL] Stat LAB 02/25/23 06:25 Completed FLU A & B MOLECULAR [FLU A/B MOLECULAR] Stat LAB 02/25/23 06:25 Completed 0.9 % Sodium Chloride [Saline Flush] Meds 02/25/23 06:17 Active 1 syr IVF PRN PRN Albuterol Sulfate 0.083% Neb [Albuterol 0.083% Neb] Meds 02/25/23 06:14 Discontinued 2.5 mg NEB ONCE STA Azithromycin Inj [Zithromax] 500 mg Meds 02/25/23 06:14 Discontinued 0.9 % Sodium Chloride [Sodium Chloride] 250 ml IV ONCE Ipratropium/Albuterol Neb [Duoneb] Meds 02/25/23 06:14 Discontinued 3 ml NEB ONCE STA Methylprednisolone Sod Succ/Pf [Solu-Medrol 125 mg] Meds 02/25/23 06:14 Discontinued 125 mg IVP ONCE ONE Ondansetron HCl/Pf [Zofran 4 mg/2 ml] Meds 02/25/23 06:56 Discontinued 4 mg IVP ONCE STA CXR [CHEST, 1V AP ONLY] Stat RADS 02/25/23 06:14 Completed Medications Generic Name Dose Route Start Last Admin Trade Name Freq PRN Reason Stop Dose Admin Acetaminophen 650 mg 02/25/23 08:51 Acetaminophen 325 Mg Tablet PO Q4H PRN Mild Pain Hydrocodone Bitart/Acetaminophen 1 tab 02/25/23 11:53 02/26/23 09:40 Hydrocodone Bit/Acetaminophen 7.5/325 Mg Tablet PO 1 tab Q6H PRN Administration MODERATE PAIN Albuterol/Ipratropium 3 ml 02/25/23 13:02 02/26/23 06:48 Ipratropium/Albuterol Vial.Robbie NEB 3 ml RTQID PRN Administration shortness of breath Budesonide/Formoterol Fumarate 2 puff 02/25/23 21:00 02/26/23 09:40 Budesonide/Formoterol Fumarate 160/4.5 Mcg Inhaler IH 2 puff BID KILEY Administration Enoxaparin Sodium 40 mg 02/26/23 09:00 02/26/23 09:41 Enoxaparin Sodium 40 Mg/0.4 Ml Syr SUBCUT 40 mg DAILY KILEY Administration Levofloxacin/Dextrose 750 mg in 150 mls @ 100 mls/hr 02/25/23 12:00 02/26/23 09:41 Levaquin 750 Mg/150 Ml D5w IV 02/28/23 11:59 100 mls/hr DAILY KILEY Administration Levothyroxine Sodium 75 mcg 02/26/23 06:00 02/26/23 06:57 Levothyroxine Sodium 75 Mcg Tablet PO 75 mcg 0600 KILEY Administration Levothyroxine Sodium 100 mcg 02/26/23 06:00 02/26/23 06:57 Levothyroxine Sodium 100 Mcg Tablet PO 100 mcg 0600 KILEY Administration Methylprednisolone Sodium Succinate 40 mg 02/25/23 13:00 02/26/23 05:09 Methylprednisolone Sod Succ/Pf 125 Mg/2 Ml Vial IVP 40 mg Q8HR KILEY Administration Sodium Chloride 1 syr 02/25/23 06:17 02/26/23 05:10 0.9% Sodium Chloride 10 Ml Disp.Syrin IVF 1 syr PRN PRN Administration To flush IV Discontinued Medications Generic Name Dose Route Start Last Admin Trade Name Freq PRN Reason Stop Dose Admin Albuterol Sulfate 2.5 mg 02/25/23 06:14 02/25/23 07:29 Albuterol Sulfate 0.083% Vial.Robbie CASTILLO 02/25/23 06:15 2.5 mg ONCE STA Administration Albuterol/Ipratropium 3 ml 02/25/23 06:14 02/25/23 06:54 Ipratropium/Albuterol Vial.Robbie CASTILLO 02/25/23 06:15 3 ml ONCE STA Administration Albuterol/Ipratropium 3 ml 02/25/23 11:53 Ipratropium/Albuterol Vial.Neb NEB Q4-6H PRN shortness of breath Azithromycin 500 mg/ Sodium 250 mls @ 125 mls/hr 02/25/23 06:14 02/25/23 06:35 Chloride IV 02/25/23 08:13 125 mls/hr ONCE STA Administration Methylprednisolone Sodium Succinate 125 mg 02/25/23 06:14 02/25/23 06:28 Methylprednisolone Sod Succ/Pf 125 Mg/2 Ml Vial IVP 02/25/23 06:15 125 mg ONCE ONE Administration Ondansetron HCl 4 mg 02/25/23 06:56 02/25/23 06:59 Ondansetron Hcl/Pf 4 Mg/2 Ml Sdv IVP 02/25/23 06:57 4 mg ONCE STA Administration Vital Signs: Temp Pulse Resp BP Pulse Ox 02/25/23 05:56 98.0 F 79 20 112/65 96 58 years old female with history of COPD coming for shortness of breath,More on walking for the last 2 days patient has some inhalers and oxygen at home ordered for her from last August when she had similar episode but was not helping so she came to the emergency room. She denies any fever any chest pain no headache no abdominal pain no changes in the bowel movement or the urine.Chest x-ray showed hyperinflated lungs, consistent with COPD, no leukocytosis patient was given Solu-Medrol 125 mg IV albuterol/nebulizer treatment she is currently on 2 L nasal cannula and received 1 dose of azithromycin 500 mg. I called the hospitalist chain and discussed patient case with her and she accepted the patient to be admitted to our services for further COPD treatment Discharge Plan Discharge Patient Disposition: ADMITTED INPATIENT Discharge Problem: Acute respiratory failure with hypoxemia, Acute exacerbation of chronic obstructive pulmonary disease Did you review [place] [employer]AIL SALES[employer]ER for ALL controlled substances?: Not Applicable ED Provider: МАРИНА CRUZ Condition: Poor Physician Progress Note: []
--- NOTE | 2023-02-25 06:33 | DI ---
EXAM: SINGLE VIEW OF THE CHEST. History: Short of breath Comparison: Chest radiograph 08/25/2022 FINDINGS: Heart size is normal. Hyperinflation. No pneumothorax and no consolidation. No acute os seous abnormalities Impression: No acute cardiopulmonary process. Chronic obstructive pulmonary disease
[2023-02-25 06:37] LABS: BASOPHILS % (AUTO) 0.4 % (0.0-3.0); EOSINOPHILS # (AUTO) 0.2 K/ul (0.0-0.7); EOSINOPHILS % (AUTO) 2.1 % (0.0-7.0); HEMOGLOBIN 13.6 g/dl (12.0-16.0); IMMATURE GRANULOCYTE % (AUTO) 0.2 % (0.0-5.0); LYMPHOCYTES # (AUTO) 1.8 K/uL (0.60-3.4); LYMPHOCYTES % (AUTO) 18.4 (10.0-50.0); MEAN CORPUSCULAR HEMOGLOBIN 29.4 pg (27.0-31.0); MEAN CORPUSCULAR HGB CONC 30.9 (31.8-35.4); MONOCYTES # (AUTO) 0.8 K/uL (0.4-2.0); NEUTROPHILS # (AUTO) 6.8 K/ul (2.0-6.9); NEUTROPHILS % (AUTO) 70.9 % (42.2-75.2); PLATELET COUNT 316 10^3/uL (140-440); RDW COEFFICIENT OF VARIATION 12.7 % (11.6-14.8); RED BLOOD COUNT 4.63 10^6/ul (4.20-5.40); WHITE BLOOD COUNT 9.57 K/ul (4.6-10.2)
[2023-02-25 06:48] LABS: ALBUMIN 4.14 g/dL (3.5-5.0); ALKALINE PHOSPHATASE 95.8 U/L (38-126); ASPARTATE AMINO TRANSFERASE 21.1 U/L (14-36); BILIRUBIN,TOTAL 0.33 mg/dL (0.2-1.3); BLOOD UREA NITROGEN 17.8 mg/dL (7-17); CALCIUM 8.88 mg/dL (8.4-10.2); CARBON DIOXIDE 29.7 mmol/L (22-30.0); CHLORIDE 109.6 mmol/L (98-107); CREATININE 0.69 mg/dL (0.60-1.30); GLUCOSE 104.9 mg/dL (74-106); POTASSIUM 4.49 mmol/L (3.5-5.1); SODIUM 141.3 mmol/L (134.5-145)
[2023-02-25] MEDS ORDERED: ZOFRAN 4 MG/2 ML IVP STA (06:56)
[2023-02-25 06:57] LABS: MOLECULAR FLU A NEGATIVE BY NAAT (NEGATIVE); MOLECULAR FLU B NEGATIVE BY NAAT (NEGATIVE)
[2023-02-25 07:10] LABS: SARS COV-2 RNA RAPID NAAT NEGATIVE (NEGATIVE)
[2023-02-25 08:22] VITALS: BMI 24.3
[2023-02-25] MEDS ORDERED: TYLENOL PO PRN (08:51)
[2023-02-25] MEDS ORDERED: DUONEB NEB PRN (11:53)
--- NOTE | 2023-02-25 11:58 | PCM ---
Date of Service Date Seen by Provider: 02/25/23 Time Seen by Provider: 09:30 Admit Day/Time Admission Date: 02/25/23 Admission Time: 06:57 Reason for Admission Chief Complaint: COPD EXACERBATION Hospital Provider Hospital Provider: KARI JEAN-BAPTISTE PA-C, [facility] [place] Primary Care Physician: JOSE JENNINGS History of Present Illness History of Present Illness: Patient is a 58-year-old female with past medical history of hypothyroidism who presented to the ER with 3-day history of feeling short of breath and overall not feeling well. She has been using her albuterol and DuoNebs as needed at home without relief. She went yard sailing and out to eat and when she got home last night around 5 PM she felt significantly short of breath. She had home oxygen from a previous hospitalization when she had pneumonia and the flu and so she put that on as well. She has no formal diagnosis of COPD but it is suspected based on her imaging. She is a chronic smoker of 1 pack/day. She denies chest pain. In the ER she was given 2 nebulizer treatments, Solu-Medrol 125 IV, azithromycin, Zofran. She was admitted to [facility] for COPD exacerbation. She is on 2 L. On my evaluation patient is feeling somewhat better. She is able to speak full sentences. She states that she has inhalers, nebulizers, and home oxygen from when she was hospitalized several months ago. However she was weaned off of oxygen and had not needed it until yesterday. Case Discussed With Case Discussed With: Patient's case was discussed with the ER Physicians, Dr. Landon Arriaga. 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) History of kidney stones Z87.442 - Personal history of urinary calculi (ICD-10) Thyroid disease E07.9 - Disorder of thyroid, unspecified (ICD-10) Surgical History H/O tubal ligation Z98.51 - Tubal ligation status (ICD-10) Family History Mother Cervical cancer PATERNAL GRANDMOTHER Cardiovascular disease Other No pertinent family history Social History Smoking and tobacco status: Current every day smoker Tobacco type: cigarettes Smoking packs per day: 1 Alcohol intake: never Substance use type: does not use Allergies Allergies Allergy/AdvReac Type Severity Reaction Status Date / Time No Known Allergies Allergy Verified 02/25/23 06:07 Current Medications Home Medications hydrocodone 7.5 mg-acetaminophen 325 mg tablet 1 tab PO Q6H PRN Pain 08/17/22 [History Confirmed 02/25/23 Last Taken Unknown] levothyroxine 175 mcg tablet (Synthroid) 175 mcg PO DAILY 08/17/22 [History Confirmed 02/25/23 Last Taken Unknown] albuterol sulfate 90 mcg/actuation aerosol inhaler 2 inh inhalation Q4-6H PRN shortness of breath or wheezing #8.5 grams 08/20/22 [Rx Confirmed 02/25/23 Last Taken Unknown] ipratropium 0.5 mg-albuterol 3 mg (2.5 mg base)/3 mL nebulization soln 3 ml inhalation Q4-6H PRN shortness of breath or wheezing #90 mL 08/20/22 [Rx Confirmed 02/25/23 Last Taken Unknown] Home Acetaminophen (Acetaminophen 325 Mg Tablet) 650 mg PO Q4H PRN PRN Reason: Mild Pain Hydrocodone Bitart/Acetaminophen (Hydrocodone Bit/Acetaminophen 7.5/325 Mg Tablet) 1 tab PO Q6H PRN PRN Reason: MODERATE PAIN Albuterol/Ipratropium (Ipratropium/Albuterol Vial.Neb) 3 ml NEB Q4-6H PRN PRN Reason: shortness of breath Budesonide/Formoterol Fumarate (Budesonide/Formoterol Fumarate 160/4.5 Mcg Inhaler) 2 puff IH BID KILEY Levofloxacin/Dextrose (Levaquin 750 Mg/150 Ml D5w) 750 mg in 150 mls @ 100 mls/hr IV DAILY KILEY Stop: 02/28/23 11:59 Methylprednisolone Sodium Succinate (Methylprednisolone Sod Succ/Pf 125 Mg/2 Ml Vial) 40 mg IVP Q8HR KILEY Non-Formulary Medication (Levothyroxine [Synthroid]) 175 mcg PO DAILY KILEY Sodium Chloride (0.9% Sodium Chloride 10 Ml Disp.Syrin) 1 syr IVF PRN PRN PRN Reason: To flush IV Last Admin: 02/25/23 06:28 Dose: 1 syr Discontinued Medications Albuterol Sulfate (Albuterol Sulfate 0.083% Vial.Neb) 2.5 mg NEB ONCE STA Stop: 02/25/23 06:15 Last Admin: 02/25/23 07:29 Dose: 2.5 mg Albuterol/Ipratropium (Ipratropium/Albuterol Vial.Neb) 3 ml NEB ONCE STA Stop: 02/25/23 06:15 Last Admin: 02/25/23 06:54 Dose: 3 ml Azithromycin 500 mg/ Sodium (Chloride) 250 mls @ 125 mls/hr IV ONCE STA Stop: 02/25/23 08:13 Last Admin: 02/25/23 06:35 Dose: 125 mls/hr Methylprednisolone Sodium Succinate (Methylprednisolone Sod Succ/Pf 125 Mg/2 Ml Vial) 125 mg IVP ONCE ONE Stop: 02/25/23 06:15 Last Admin: 02/25/23 06:28 Dose: 125 mg Ondansetron HCl (Ondansetron Hcl/Pf 4 Mg/2 Ml Sdv) 4 mg IVP ONCE STA Stop: 02/25/23 06:57 Last Admin: 02/25/23 06:59 Dose: 4 mg Review of Systems Constitutional: Denies Fever, Fatigue or Chills Head: Reports Normocephalic and Atraumatic Eyes: Denies Blurred vision or Vision Changes Ears: Denies Pain or Drainage Nose: Denies Post Nasal Drip or Congestion Mouth: Denies Sores Throat: Denies Sore Throat or Difficulty Swallowing Cardiovascular: Denies Chest pain or Chest Pressure Respiratory: Reports Cough and Shortness of air Gastrointestinal: Denies Nausea, Vomiting or Abdominal pain Genitourinary: Denies Dysuria or Frequency Neurological: Denies Headache, Dizziness, Syncope or Seizure Psychiatric: Denies Depression or Anxiety Physical examination Most Recent Vital Signs: Most Recent Vital Signs Temperature 97.7 F 02/25/23 10:00 Temperature Source Temporal Artery Scan 02/25/23 10:00 Temperature Source Infrared 02/25/23 05:56 Pulse Rate 69 02/25/23 10:00 Respiratory Rate 18 02/25/23 10:00 Blood Pressure 119/84 02/25/23 10:00 Blood Pressure Mean 95 02/25/23 10:00 Blood Pressure Left Arm 119/76 02/25/23 08:11 Blood Pressure Location Right Arm 02/25/23 10:00 Blood Pressure Position Sitting 02/25/23 10:00 O2 Sat by Pulse Oximetry 95 02/25/23 10:25 Oxygen Delivery Method Nasal Cannula 02/25/23 10:25 Oxygen Flow Rate 2 02/25/23 10:25 Height 5 ft 2 in 02/25/23 08:11 Weight 133 lb 02/25/23 08:11 Telemetry Type Remote Telemetry 02/25/23 07:00 Telemetry Monitoring Started 02/25/23 07:00 Telemetry Heart Rate 93 02/25/23 07:00 Telemetry SPO2 91 L 08/20/22 07:00 EKG AK Interval 0.16 02/25/23 07:00 EKG QRS Interval 0.05 L 02/25/23 07:00 Telemetry Strip Reading SR 02/25/23 07:00 Appearance: Positive Well-appearing, Well-nourished, No Apparent Distress and Alert and Oriented x3 Skin: Positive [place], Warm, Good Turgor and Good Color; Negative Rashes HEENT: Positive Normocephalic and Atraumatic Neck: Positive Supple and Midline Trachea Chest/Lungs: Positive Other (Patient sounds very tight brianne, limited air movement brianne, no wheezing appreciated. Able to speak full sentences. No tripoding or drooling. ); Negative Rales, Rhonci or Wheezes Heart: Positive RRR GI/: Positive Soft, Nontender, Bowel Sounds Normal, No Distention and Bowel Sounds Hyperactive Musculoskeletal: Positive Normal Gait and Station Neurological: Positive Cranial Nerves Intact, Alert, Oriented and Muscle Strength 5/5 in Upper and Lower Extremities Bilaterally Psychiatric: Positive Oriented x4, Appropriate Mood and Appropriate Affect Labs This Visit Labs This Visit: Labs This Visit 02/25/23 02/25/23 06:25 06:30 WBC 9.57 RBC 4.63 Hgb 13.6 Hct 44.0 MCV 95.0 MCH 29.4 MCHC 30.9 L RDW Coeff of [place] 12.7 Plt Count 316 Immature Gran % (Auto) 0.2 Neut % (Auto) 70.9 Lymph % (Auto) 18.4 [place] % (Auto) 8.0 Eos % (Auto) 2.1 Baso % (Auto) 0.4 Neut # (Auto) 6.8 Lymph # (Auto) 1.8 [place] # (Auto) 0.8 Eos # (Auto) 0.2 Baso # (Auto) 0.0 Immature Gran # (Auto) 0.0 Sodium 141.3 Potassium 4.49 Chloride 109.6 H Carbon Dioxide 29.7 Anion Gap 6.49 BUN 17.8 H Creatinine 0.69 Estimated GFR (MDRD) 87.00 BUN/Creatinine Ratio 25.79 Glucose 104.9 Calcium 8.88 Total Bilirubin 0.33 AST 21.1 ALT 14.0 Alkaline Phosphatase 95.8 Total Protein 7.00 Albumin 4.14 Globulin 2.86 Albumin/Globulin Ratio 1.44 Influ A Molecular Assay Negative by naat Influ B Molecular Assay Negative by naat SARS CoV-2 RNA Rapid EMANUEL Negative Imaging Imaging: EXAM: SINGLE VIEW OF THE CHEST. History: Short of breath Comparison: Chest radiograph 08/25/2022 FINDINGS: Heart size is normal. Hyperinflation. No pneumothorax and no consolidation. No acute osseous abnormalities Impression: No acute cardiopulmonary process. Chronic obstructive pulmonary disease Review Statement Review Statement: I have independently reviewed and interpreted the labs/EKGs/imaging that were ordered by the ER provider. I have reviewed all outside records that are available currently in our EMR including imaging/notes/labs from previous visits. Plan Plan: 1. Acute hypoxic respiratory failure in setting of COPD Exacerbation - On 2L, wean O2 when able. Abx, steroids, nebs. 2. Acute COPD Exacerbation - RT consult, nebs, start symbicort, levaquin IV qd, solumedrol 40 mg q8hrs. Stop smoking. Outpatient PFT recommended for formal diagnosis. 3. Hypothyroidism - Continue home meds DVT Prophylaxis: Lovenox. Time Spent: Greater than 80 minutes spent with patient, 50% of the time spent with this patient was devoted to counseling and coordination of care. Advanced Care Planning: FULL CODE 3- minutes spent discussing advance care planning. Smoking Cessation: 5 minutes spent discussing smoking cessation. Admit to: Obs Discussed Plan of Care with Dr. Kimmy Valdovinos. Medications Medication Orders: Medications Ordered Category Date Time Status 0.9 % Sodium Chloride [Saline Flush] Meds 02/25/23 06:17 Active 1 syr IVF PRN PRN Acetaminophen [Tylenol] Meds 02/25/23 08:51 Active 650 mg PO Q4H PRN Budesonide/Formoterol Fumarate [Symbicort 160-4.5 Mcg Meds 02/25/23 21:00 Ordered Inhaler] 2 puff IH BID Hydrocodone Bit/Acetaminophen [[place] 7.5-325] Meds 02/25/23 11:53 Ordered 1 tab PO Q6H PRN Ipratropium/Albuterol Neb [Duoneb] Meds 02/25/23 11:53 Ordered 3 ml NEB Q4-6H PRN Levofloxacin/D5w [Levaquin 750 mg/150 ml D5w] Meds 02/25/23 12:00 Active 750 mg in 150 ml IV DAILY Methylprednisolone Sod Succ/Pf [Solu-Medrol 125 mg] Meds 02/25/23 13:00 Active 40 mg IVP Q8HR levothyroxine [Synthroid] Meds 02/25/23 12:00 Ordered 175 mcg PO DAILY
[2023-02-25] MEDS: LEVAQUIN 750 MG/150 ML D5W 750 MG/150 ML BAG IV SCH (13:06)
[2023-02-25] MEDS: DUONEB NEB PRN ×2 (13:25→20:07)
[2023-02-25] MEDS: SOLU-MEDROL 125 MG IVP SCH ×2 (14:49→21:24)
[2023-02-25] MEDS: NORCO 7.5-325 PO PRN (15:05)
[2023-02-25] MEDS: SYMBICORT 160-4.5 MCG INHALER IH SCH (21:23)
[2023-02-26] MEDS: SOLU-MEDROL 125 MG IVP SCH ×3 (05:09→20:49)
[2023-02-26 05:45] LABS: BASOPHILS % (AUTO) 0.1 % (0.0-3.0); HEMATOCRIT 43.4 % (37.0-47.0); HEMOGLOBIN 13.4 g/dl (12.0-16.0); IMMATURE GRANULOCYTE # (AUTO) 0.1 (0.0-1.0); IMMATURE GRANULOCYTE % (AUTO) 0.5 % (0.0-5.0); LYMPHOCYTES # (AUTO) 0.9 K/uL (0.60-3.4); LYMPHOCYTES % (AUTO) 7.9 (10.0-50.0); MEAN CORPUSCULAR HEMOGLOBIN 29.3 pg (27.0-31.0); MEAN CORPUSCULAR HGB CONC 30.9 (31.8-35.4); MONOCYTES # (AUTO) 0.4 K/uL (0.4-2.0); MONOCYTES % (AUTO) 3.2 (0-10); NEUTROPHILS # (AUTO) 10.3 K/ul (2.0-6.9); NEUTROPHILS % (AUTO) 88.3 % (42.2-75.2); PLATELET COUNT 334 10^3/uL (140-440); RDW COEFFICIENT OF VARIATION 12.6 % (11.6-14.8); RED BLOOD COUNT 4.57 10^6/ul (4.20-5.40); WHITE BLOOD COUNT 11.69 K/ul (4.6-10.2)
[2023-02-26 06:04] LABS: ALANINE AMINOTRANSFERASE 13.8 U/L (0-35); ALBUMIN 3.94 g/dL (3.5-5.0); ALKALINE PHOSPHATASE 82.9 U/L (38-126); ASPARTATE AMINO TRANSFERASE 19.9 U/L (14-36); BILIRUBIN,TOTAL 0.16 mg/dL (0.2-1.3); BLOOD UREA NITROGEN 15.7 mg/dL (7-17); CALCIUM 9.34 mg/dL (8.4-10.2); CHLORIDE 109.4 mmol/L (98-107); CREATININE 0.67 mg/dL (0.60-1.30); GLUCOSE 136.6 mg/dL (74-106); POTASSIUM 4.44 mmol/L (3.5-5.1); SODIUM 140.8 mmol/L (134.5-145); TOTAL PROTEIN 6.61 g/dL (6.3-8.2)
[2023-02-26] MEDS: DUONEB NEB PRN ×3 (06:48→20:07)
[2023-02-26] MEDS: SYNTHROID PO SCH ×2 (06:57)
[2023-02-26] MEDS: NORCO 7.5-325 PO PRN ×2 (09:40→20:48)
[2023-02-26] MEDS: SYMBICORT 160-4.5 MCG INHALER IH SCH ×2 (09:40→20:49)
[2023-02-26] MEDS: LEVAQUIN 750 MG/150 ML D5W 750 MG/150 ML BAG IV SCH (09:41)
[2023-02-26] MEDS: LOVENOX SUBCUT SCH (09:41)
--- NOTE | 2023-02-26 10:59 | PCM.PROG ---
Date/Time Seen Date Seen by Provider: 02/26/23 Time Seen by Provider: 09:20 Provider [facility] Chief Complaint Chief Complaint: COPD EXACERBATION Subjective Subjective: No fever or events overnight. States she feels much better compared to when she came in. However, reports she still feels tight when trying to get a deep breath. Objective Appearance: Positive No Apparent Distress, Alert and Oriented x3, Ill-Appearing and Thin Chest/Lungs: Positive Symmetrical With Equal Breath Sounds, Clear to Auscultation Bilaterally, Wheezes (faint expiratory) and Other (no tripoding or accessory muscle use); Negative Good Air Movement all 4 Lung Zhang (air movement noted, but very diminished) Heart: Positive RRR and Pulses Normal GI/: Positive Soft, Nontender, Bowel Sounds Normal, No Distention and No Organomegaly Musculoskeletal: Positive Not Examined Neurological: Positive Alert, Oriented and Muscle Strength 5/5 in Upper and Lo wer Extremities Bilaterally Vital Signs Vital Signs: Vital Signs: Last 24 Hours 02/25/23 18:00 02/25/23 14:00 02/25/23 13:40 Temperature 98 F 97.7 F Temperature Source Oral Temporal Artery Scan Pulse Rate 93 79 Respiratory Rate 18 20 Blood Pressure 111/64 115/79 Blood Pressure Mean 79 91 Blood Pressure Location Right Arm Right Arm Blood Pressure Position Sitting Sitting O2 Sat by Pulse Oximetry 96 95 93 L Oxygen Delivery Method Nasal Cannula Nasal Cannula Nasal Cannula Oxygen Flow Rate 2 2 2 Telemetry Type Telemetry Monitoring Telemetry Heart Rate EKG TN Interval EKG QRS Interval Telemetry Strip Reading 02/25/23 13:00 02/25/23 19:32 02/25/23 19:00 Temperature Temperature Source Pulse Rate Respiratory Rate Blood Pressure Blood Pressure Mean Blood Pressure Location Blood Pressure Position O2 Sat by Pulse Oximetry 93 L Oxygen Delivery Method Nasal Cannula Oxygen Flow Rate 2 Telemetry Type Remote Telemetry Remote Telemetry Telemetry Monitoring Continues Continues Telemetry Heart Rate 102 H 93 EKG TN Interval 0.16 0.16 EKG QRS Interval 0.08 0.06 Telemetry Strip Reading SINUS TACH SR 02/25/23 20:00 02/25/23 22:00 02/26/23 01:00 Temperature 97.9 F Temperature Source Oral Pulse Rate 88 Respiratory Rate 18 Blood Pressure 102/64 Blood Pressure Mean 76 Blood Pressure Location Right Arm Blood Pressure Position Supine O2 Sat by Pulse Oximetry 95 Oxygen Delivery Method Nasal Cannula Nasal Cannula Oxygen Flow Rate 2 2 Telemetry Type Remote Telemetry Telemetry Monitoring Continues Telemetry Heart Rate 83 EKG TN Interval 0.16 EKG QRS Interval 0.07 Telemetry Strip Reading SR 02/26/23 02:00 02/26/23 05:42 02/26/23 06:00 Temperature 97.5 F L Temperature Source Tympanic Pulse Rate 79 92 Respiratory Rate 18 16 Blood Pressure 113/75 Blood Pressure Mean 87 Blood Pressure Location Right Arm Blood Pressure Position Supine O2 Sat by Pulse Oximetry 94 L 94 L Oxygen Delivery Method Nasal Cannula Nasal Cannula Nasal Cannula Oxygen Flow Rate 2 2 2 Telemetry Type Telemetry Monitoring Telemetry Heart Rate EKG TN Interval EKG QRS Interval Telemetry Strip Reading 02/26/23 07:00 02/26/23 10:00 02/26/23 10:00 Temperature 96.8 F L Temperature Source Tympanic Pulse Rate 81 Respiratory Rate 14 Blood Pressure 120/81 Blood Pressure Mean 94 Blood Pressure Location Right Arm Blood Pressure Position Sitting O2 Sat by Pulse Oximetry 94 L Oxygen Delivery Method Nasal Cannula Nasal Cannula Oxygen Flow Rate 2 2 Telemetry Type Remote Telemetry Telemetry Monitoring Continues Telemetry Heart Rate 98 EKG TN Interval 0.14 EKG QRS Interval 0.08 Telemetry Strip Reading SR Lab Results Lab Results: Lab Results: Last 24 Hours 02/26/23 05:04 WBC 11.69 H RBC 4.57 Hgb 13.4 Hct 43.4 MCV 95.0 MCH 29.3 MCHC 30.9 L RDW Coeff of Tiara 12.6 Plt Count 334 Immature Gran % (Auto) 0.5 Neut % (Auto) 88.3 H Lymph % (Auto) 7.9 L [place] % (Auto) 3.2 Eos % (Auto) 0.0 Baso % (Auto) 0.1 Neut # (Auto) 10.3 H Lymph # (Auto) 0.9 [place] # (Auto) 0.4 Eos # (Auto) 0.0 Baso # (Auto) 0.0 Immature Gran # (Auto) 0.1 Sodium 140.8 Potassium 4.44 Chloride 109.4 H Carbon Dioxide 28.0 Anion Gap 7.84 BUN 15.7 Creatinine 0.67 Estimated GFR (MDRD) 90.00 BUN/Creatinine Ratio 23.43 Glucose 136.6 H Calcium 9.34 Total Bilirubin 0.16 L AST 19.9 ALT 13.8 Alkaline Phosphatase 82.9 Total Protein 6.61 Albumin 3.94 Globulin 2.67 Albumin/Globulin Ratio 1.47 Additional Comments Additional Comments: I have independently reviewed and interpreted the labs/EKGs/imaging ordered duri ng this hospital stay. I have reviewed outside records that are available in our EMR that pertain to medical stay including imaging/notes/labs from previous visits. Active Medications Active Medications: Medications Generic Name Dose Route Start Last Admin Trade Name Freq PRN Reason Stop Dose Admin Acetaminophen 650 mg 02/25/23 08:51 Acetaminophen 325 Mg Tablet PO Q4H PRN Mild Pain Hydrocodone Bitart/Acetaminophen 1 tab 02/25/23 11:53 02/26/23 09:40 Hydrocodone Bit/Acetaminophen 7.5/325 Mg Tablet PO 1 tab Q6H PRN Administration MODERATE PAIN Albuterol/Ipratropium 3 ml 02/25/23 13:02 02/26/23 06:48 Ipratropium/Albuterol Vial.Neb NEB 3 ml RTQID PRN Administration shortness of breath Budesonide/Formoterol Fumarate 2 puff 02/25/23 21:00 02/26/23 09:40 Budesonide/Formoterol Fumarate 160/4.5 Mcg Inhaler IH 2 puff BID KILEY Administration Enoxaparin Sodium 40 mg 02/26/23 09:00 02/26/23 09:41 Enoxaparin Sodium 40 Mg/0.4 Ml Syr SUBCUT 40 mg DAILY KILEY Administration Levofloxacin/Dextrose 750 mg in 150 mls @ 100 mls/hr 02/25/23 12:00 02/26/23 09:41 Levaquin 750 Mg/150 Ml D5w IV 02/28/23 11:59 100 mls/hr DAILY KILEY Administration Levothyroxine Sodium 75 mcg 02/26/23 06:00 02/26/23 06:57 Levothyroxine Sodium 75 Mcg Tablet PO 75 mcg 0600 KILEY Administration Levothyroxine Sodium 100 mcg 02/26/23 06:00 02/26/23 06:57 Levothyroxine Sodium 100 Mcg Tablet PO 100 mcg 0600 KILEY Administration Methylprednisolone Sodium Succinate 40 mg 02/25/23 13:00 02/26/23 05:09 Methylprednisolone Sod Succ/Pf 125 Mg/2 Ml Vial IVP 40 mg Q8HR KILEY Administration Sodium Chloride 1 syr 02/25/23 06:17 02/26/23 05:10 0.9% Sodium Chloride 10 Ml Disp.Syrin IVF 1 syr PRN PRN Administration To flush IV Plan Plan: 1. Acute hypoxic respiratory failure in setting of COPD Exacerbation - On 2L, wean O2 when able. Abx, steroids, nebs. 2. Acute COPD Exacerbation - RT consult, nebs, start symbicort, levaquin IV qd, solumedrol 40 mg q8hrs. Stop smoking. Outpatient PFT recommended for formal diagnosis. 3. Hypothyroidism - Continue home meds Mild wheezes noted on auscultation but still tight. O2 sat still dropping drastically on RA. Would benefit for 1 more day of treatment. Likely d/c tomorrow am. Review Statement Review Statement: I have personally discussed and reviewed the patient's visit/currently labs/imaging/decision making with Dr. Valdovinos, my supervising attending. Greater that 50 minutes spent with patient, 50% of the time spent with this patient was devoted to counseling and coordination of care.
[2023-02-27] MEDS: DUONEB NEB PRN ×2 (04:52→11:35)
[2023-02-27] MEDS: SYNTHROID PO SCH ×2 (05:07)
[2023-02-27] MEDS: SOLU-MEDROL 125 MG IVP SCH ×2 (05:08→12:25)
[2023-02-27 05:35] LABS: BASOPHILS % (AUTO) 0.1 % (0.0-3.0); HEMOGLOBIN 13.2 g/dl (12.0-16.0); IMMATURE GRANULOCYTE # (AUTO) 0.1 (0.0-1.0); IMMATURE GRANULOCYTE % (AUTO) 0.8 % (0.0-5.0); LYMPHOCYTES # (AUTO) 1.3 K/uL (0.60-3.4); LYMPHOCYTES % (AUTO) 11.1 (10.0-50.0); MEAN CORPUSCULAR HEMOGLOBIN 29.5 pg (27.0-31.0); MEAN CORPUSCULAR HGB CONC 31.4 (31.8-35.4); MONOCYTES # (AUTO) 0.4 K/uL (0.4-2.0); MONOCYTES % (AUTO) 3.4 (0-10); NEUTROPHILS % (AUTO) 84.6 % (42.2-75.2); PLATELET COUNT 324 10^3/uL (140-440); RDW COEFFICIENT OF VARIATION 12.8 % (11.6-14.8); RED BLOOD COUNT 4.47 10^6/ul (4.20-5.40); WHITE BLOOD COUNT 11.85 K/ul (4.6-10.2)
[2023-02-27 05:49] LABS: ALANINE AMINOTRANSFERASE 13.3 U/L (0-35); ALBUMIN 3.85 g/dL (3.5-5.0); ALKALINE PHOSPHATASE 76.5 U/L (38-126); ASPARTATE AMINO TRANSFERASE 19.4 U/L (14-36); BILIRUBIN,TOTAL 0.2 mg/dL (0.2-1.3); BLOOD UREA NITROGEN 19.6 mg/dL (7-17); CALCIUM 9.12 mg/dL (8.4-10.2); CARBON DIOXIDE 28.9 mmol/L (22-30.0); CHLORIDE 106.7 mmol/L (98-107); CREATININE 0.65 mg/dL (0.60-1.30); GLUCOSE 125.8 mg/dL (74-106); POTASSIUM 4.35 mmol/L (3.5-5.1); SODIUM 139.2 mmol/L (134.5-145); TOTAL PROTEIN 6.43 g/dL (6.3-8.2)
[2023-02-27] MEDS: SYMBICORT 160-4.5 MCG INHALER IH SCH (08:38)
[2023-02-27] MEDS: LEVAQUIN 750 MG/150 ML D5W 750 MG/150 ML BAG IV SCH (08:38)
[2023-02-27] MEDS: LOVENOX SUBCUT SCH (08:39)
[2023-02-27 10:09] VITALS: BP 114/75; RESP 15; TEMP 97.6
[2023-02-27] MEDS: NORCO 7.5-325 PO PRN (10:31)
--- NOTE | 2023-02-27 10:53 | DCSUM ---
Admission Date Admission Date: 02/25/23 Discharge Date Discharge Date: 02/27/23 Admission Diagnosis Admission Diagnosis: Acute Hypoxic Respiratory Failure, COPD Exacerbation Discharge Diagnosis Discharge Diagnosis: Acute Hypoxic Respiratory Failure, COPD Exacerbation Hospital Provider Hospital Provider: KAYLIN MENDOZA, [facility] [place] Primary Care Physician Primary Care Physician: JOSE HERNANDEZ Summary of History and Physical Summary of History and Physical: Patient is a 58-year-old female with past medical history of hypothyroidism who presented to the ER with 3-day history of feeling short of breath and overall not feeling well. She has been using her albuterol and DuoNebs as needed at home without relief. She went yard sailing and out to eat and when she got home last night around 5 PM she felt significantly short of breath. She had home oxygen from a previous hospitalization when she had pneumonia and the flu and so she put that on as well. She has no formal diagnosis of COPD but it is suspected based on her imaging. She is a chronic smoker of 1 pack/day. She denies chest pain. In the ER she was given 2 nebulizer treatments, Solu-Medrol 125 IV, azithromycin, Zofran. She was admitted to [facility] [place] for COPD exacerbation. She is on 2 L. On my evaluation patient is feeling somewhat better. She is able to speak full sentences. She states that she has inhalers, nebulizers, and home oxygen from when she was hospitalized several months ago. However she was weaned off of oxygen and had not needed it until yesterday. 1.Acute hypoxic respiratory failure in setting of COPD Exacerbation - On 2L, wean O2 when able. Abx, steroids, nebs. 2. Acute COPD Exacerbation - RT consult, nebs, start symbicort, levaquin IV qd, solumedrol 40 mg q8hrs. Stop smoking. Outpatient PFT recommended for formal diagnosis. 3. Hypothyroidism - Continue home meds Hospital Course Subjective: No events overnight. Feeling much better today. Does not feel short of breath. 1. Acute Hypoxic Respiratory Failure in setting of COPD exacerbation - resolved, d/c home on abx and steroids 2. Acute COPD exacerbation - improving, see above, d/c home with symbicort and appointment for pft 3. Hypothyroidism - chronic, continue home meications Appearance: Pleasant, No Apparent Distress, Alert and Well-appearing HEENT: MMM and Supple CVS: No Murmur Abdomen: Soft and Non-Tender Respiratory: No Dyspnea Extremities: No Edema Vital Signs: Most Recent Vital Signs Temperature 97.6 F 02/27/23 10:00 Temperature Source Temporal Artery Scan 02/27/23 10:00 Temperature Source Infrared 02/25/23 05:56 Pulse Rate 96 02/27/23 10:00 Respiratory Rate 15 02/27/23 10:00 Blood Pressure 114/75 02/27/23 10:00 Blood Pressure Mean 88 02/27/23 10:00 Blood Pressure Left Arm 119/76 02/25/23 08:11 Blood Pressure Location Left Arm 02/27/23 10:00 Blood Pressure Position Sitting 02/27/23 10:00 O2 Sat by Pulse Oximetry 98 02/27/23 10:00 Oxygen Delivery Method Nasal Cannula 02/27/23 10:00 Oxygen Flow Rate 2 02/27/23 10:00 Height 5 ft 2 in 02/26/23 13:38 Weight 133 lb 02/26/23 13:38 Telemetry Type Remote Telemetry 02/27/23 07:00 Telemetry Monitoring Continues 02/27/23 07:00 Telemetry Heart Rate 71 02/27/23 07:00 Telemetry SPO2 91 L 08/20/22 07:00 EKG MD Interval 0.16 02/27/23 07:00 EKG QRS Interval 0.04 L 02/27/23 07:00 Telemetry Strip Reading SR 02/27/23 07:00 Lab Results Last 24 Hours: 02/27/23 05:08 WBC 11.85 H RBC 4.47 Hgb 13.2 Hct 42.0 MCV 94.0 MCH 29.5 MCHC 31.4 L RDW Coeff of Tiara 12.8 Plt Count 324 Immature Gran % (Auto) 0.8 Neut % (Auto) 84.6 H Lymph % (Auto) 11.1 Burke % (Auto) 3.4 Eos % (Auto) 0.0 Baso % (Auto) 0.1 Neut # (Auto) 10.0 H Lymph # (Auto) 1.3 Burke # (Auto) 0.4 Eos # (Auto) 0.0 Baso # (Auto) 0.0 Immature Gran # (Auto) 0.1 Sodium 139.2 Potassium 4.35 Chloride 106.7 Carbon Dioxide 28.9 Anion Gap 7.95 BUN 19.6 H Creatinine 0.65 Estimated GFR (MDRD) 94.00 BUN/Creatinine Ratio 30.15 Glucose 125.8 H Calcium 9.12 Total Bilirubin 0.20 AST 19.4 ALT 13.3 Alkaline Phosphatase 76.5 Total Protein 6.43 Albumin 3.85 Globulin 2.58 Albumin/Globulin Ratio 1.49 Discharge Instructions Discharge Planning: Discharge Planning > 40 minutes Activity as tolerated Symbicort inhaler Medrol dose pack Levaquin Follow-up with Dr. Hernandez this week. PFT this week If patient is discharged with left ventricular systolic dysfunction: no Discharged with a beta arash? [] If no, why not? [] Discharged with an rossy/arb? [] If no, why not? [] Discharge Medications: Medications at Discharge (Home Meds & RX) hydrocodone 7.5 mg-acetaminophen 325 mg tablet 1 tab PO Q6H PRN Pain 08/17/22 levothyroxine 175 mcg tablet (Synthroid) 175 mcg PO DAILY 08/17/22 albuterol sulfate 90 mcg/actuation aerosol inhaler 2 inh inhalation Q4-6H PRN shortness of breath or wheezing #8.5 grams 08/20/22 ipratropium 0.5 mg-albuterol 3 mg (2.5 mg base)/3 mL nebulization soln 3 ml inhalation Q4-6H PRN shortness of breath or wheezing #90 mL 08/20/22 Discharge Plan Discharge Discharge Orders: Discharge Patient (ONCE); Ordered 02/27/23 Ordered By: LILIA AGUSTIN Activity Restrictions/Additional Instructions: Activity as tolerated Symbicort inhaler 2 puffs BID Medrol dose pack take as directed Levaquin 750 mg PO daily x 7 days Instructions: How to Stop Smoking (GEN), COPD (Chronic Obstructive Pulmonary Disease) (GEN), Pulmonary Function Tests (DC) Patient Disposition: HOME SELF-CARE Prescriptions: New budesonide-formoterol [Symbicort] 160-4.5 mcg/actuation Hfa Aerosol Inhaler 2 puff inhalation BID Qty: 1 0RF levofloxacin 750 mg tablet 750 mg PO DAILY Qty: 7 0RF methylprednisolone [Medrol (Morris)] 4 mg tablets,dose pack See Rx Instructions .ROUTE .COMPLEX Qty: 21 0RF Rx Instructions: orally per package directions Continued levothyroxine [Synthroid] 175 mcg tablet 175 mcg PO DAILY Patient Comments: TK 1 T PO ONCE D hydrocodone-acetaminophen 7.5-325 mg Tablet 1 tab PO Q6H PRN (Reason: Pain) ipratropium-albuterol 0.5 mg-3 mg(2.5 mg base)/3 mL solution for nebulization 3 ml inhalation Q4-6H PRN (Reason: shortness of breath or wheezing) Qty: 90 0RF albuterol sulfate 90 mcg/actuation HFA aerosol inhaler 2 inh inhalation Q4-6H PRN (Reason: shortness of breath or wheezing) Qty: 8.5 0RF Did you review [place] [employer] for ALL controlled substances?: No Discussed opioids are addictive and Narcan is available by prescription or from pharmacy.: No Condition: Fair
== END 2023-02-27 13:15 | disposition home or self-care (01) ==
LOC: MEDSURG B 05:55 → ED 05:55 → MEDSURG B 08:09
PROVIDERS: ADMIT Hospitalist; ATTEND Nurse Practitioner Family
DX: J96.01 Acute respiratory failure with hypoxia; F17.210 Nicotine dependence, cigarettes, uncomplicated; Z79.01 Long term (current) use of anticoagulants; R63.0 Anorexia; E03.9 Hypothyroidism, unspecified; J44.1 Chronic obstructive pulmonary disease with (acute) exacerbation